=== PATIENT | female | born 1945 | race African-American/Black ===

== ENCOUNTER → 2017-03-19 | Outpatient (CLI) | payer MEDICARE ==
[2015-11-23 14:30] VITALS: BP 155/68
[~2017-03-19] MED LIST: ACET500T68 PO; ACET80TA52 PO; CALC600T PO; CHOL400C2 PO; LOPE1TAB4 PO; LORA10TA3 PO; LORA10TA55 PO; OMEP20CA9 PO; VALA500T PO; VERA120C2 PO; VERA120T59 PO
--- NOTE | 2017-03-20 08:25 | RAD ---
DATE: 03/19/2017 EXAM: DIGITAL SCREEN BILAT W/CAD HISTORY: Screening COMPARISON: 04/16/2014 This study was interpreted with the benefit of Computerized Aided Detection (CAD). FINDINGS: Breast Density: HETERO The breast parenchyma Is heterogeneiously dense, which could reduce sensitivity of mammography. Breast parenchyma level C. There are benign-appearing calcifications in both breasts. The left breast is unchanged. There is a density in the right breast on the cc view laterally. This almost certainly reflects summation artifact but a coned compression image and rolled CC views are suggested for confirmation IMPRESSION: Density right breast likely reflecting summation artifact. Additional imaging suggested as outlined above . BI-RADS CATEGORY: 0 INCOMPLETE: NEED ADDITIONAL IMAGING EVAULATION AND/OR PRIOR MAMMOGRAMS FOR COMPARISON RECOMMENDED FOLLOW-UP: ADD ADDITIONAL IMAGING PQRS compliance statement: Patient information was entered into a reminder system with a target due date soon for the next mammogram. Mammography is a sensitive method for finding small breast cancers, but it does not detect them all and is not a substitute for careful clinical examination. A negative mammogram does not negate a clinically suspicious finding and should not result in delay in biopsying a clinically suspicious abnormality. "Our facility is accredited by the [employer] Mammography Program."
== END | disposition home or self-care (01) ==
LOC: MAMMO 14:49
PROVIDERS: ATTEND Physician Assistant Surgical
DX: Z12.31 Encounter for screening mammogram for malignant neoplasm of breast (principal)
CPT/HCPCS: G0202; 77067

== ENCOUNTER → 2017-03-26 | Outpatient (CLI) | payer MEDICARE ==
[2015-11-23 14:30] VITALS: BP 155/68
--- NOTE | 2017-03-26 12:59 | RAD ---
DATE: 03/26/2017. EXAM: DIGITAL DIAGNOSTIC RT. HISTORY: Density on mammographic screening. Additional views requested. COMPARISON: 03/19/2017, 04/16/2014. This study was interpreted with the benefit of Computerized Aided Detection (CAD). FINDINGS: The breast parenchyma is heterogeneously dense, which could reduce sensitivity of mammography. Breast parenchyma level C.. The density of concern resolves to a parenchymal density on spot compression. There is no persistent suspicious mass. Coarse calcifications appear benign. 2 of the rolled images are mislabeled as left. BI-RADS CATEGORY: 2 BENIGN FINDING(S). RECOMMENDED FOLLOW-UP: 12M 12 MONTH FOLLOW-UP. PQRS compliance statement: Patient information was entered into a reminder system with a target due date 03/26/2018 for the next mammogram. Mammography is a sensitive method for finding small breast cancers, but it does not detect them all and is not a substitute for careful clinical examination. A negative mammogram does not negate a clinically suspicious finding and should not result in delay in biopsying a clinically suspicious abnormality. "Our facility is accredited by the [employer] Mammography Program."
== END | disposition home or self-care (01) ==
LOC: MAMMO 12:53
PROVIDERS: ATTEND Physician Assistant Surgical
DX: R92.8 Other abnormal and inconclusive findings on diagnostic imaging of breast (principal)
CPT/HCPCS: G0206; 77065

== ENCOUNTER 2017-08-21 10:40 | Inpatient (IN) | payer MEDICARE ==
[2017-08-21] MEDS: IV NORMAL SALINE 1000ML BAG 1,000 ML IV ×2 (11:34→15:15)
[2017-08-21 11:58] LABS: ADD MAN DIFF? NO
[2017-08-21 12:11] LABS: ANION GAP 10 (6-14); BLOOD UREA NITROGEN 14 mg/dL (7-20); CALCIUM 8.9 mg/dL (8.5-10.1); CARBON DIOXIDE 30 mmol/L (21-32); CHLORIDE 105 mmol/L (98-107); CREATININE 1.2 mg/dL (0.6-1.0); GFR 53.4; GLUCOSE 97 mg/dL (70-99); POTASSIUM 3.2 mmol/L (3.5-5.1); SODIUM 145 mmol/L (136-145)
[2017-08-21 12:12] LABS: BASO % 1 % (0-3); EOS % 0 % (0-3); HEMATOCRIT 38.8 % (36.0-47.0); HEMOGLOBIN 12.6 g/dL (12.0-15.5); LYMPH # 2.4 x10^3/uL (1.0-4.8); LYMPH % 25 % (24-48); MEAN CORPUSCULAR HEMOGLOBIN 31 pg (25-35); MEAN CORPUSCULAR HGB CONC 33 g/dL (31-37); MEAN CORPUSCULAR VOLUME 95 fL (79-100); MONO # 0.5 x10^3/uL (0.0-1.1); MONO % 5 % (0-9); NEUT # 6.7 x10^3uL (1.8-7.7); NEUT % 69 % (31-73); PLATELET COUNT 237 x10^3/uL (140-400); RED BLOOD COUNT 4.08 x10^6/uL (3.50-5.40); RED CELL DISTRIBUTION WIDTH 13.3 % (11.5-14.5); WHITE BLOOD COUNT 9.7 x10^3/uL (4.0-11.0)
[2017-08-21 12:19] LABS: LACTIC ACID 2.9 mmol/L (0.4-2.0)
[2017-08-21 12:20] LABS: TROPONINI < 0.017 ng/mL (0.000-0.055)
[2017-08-21 12:24] LABS: NT-PRO BNP 335 pg/mL (0-124)
[2017-08-21 12:26] LABS: ALBUMIN 3.4 g/dL (3.4-5.0); ALK PHOS 65 U/L (46-116); ALT (SGPT) 19 U/L (14-59); AST (SGOT) 21 U/L (15-37); DIRECT BILIRUBIN 0.1 mg/dL (0.0-0.2); LIPASE 82 U/L (73-393); TOTAL BILIRUBIN 0.2 mg/dL (0.2-1.0); TOTAL PROTEIN 7.4 g/dL (6.4-8.2)
[2017-08-21] MEDS ORDERED: ONDANSETRON PF 4 MG/2 ML VIAL. IV (12:45)
[2017-08-21] MEDS: IV NORMAL SALINE 1000ML BAG 1,620 ML IV (12:55)
[2017-08-21 13:24] LABS: BILIRUBIN,URINE NEGATIVE (NEG); CLARITY,URINE CLOUDY; COLOR,URINE YELLOW; GLUCOSE,URINE NEGATIVE (NEG); NITRITE,URINE NEGATIVE (NEG); PROTEIN,URINE 30 mg/dL (NEG-TRACE); UROBILINOGEN,URINE 0.2 mg/dL (0.2 mg/dL)
[2017-08-21 13:33] LABS: RBC,URINE 0 /HPF (0-2)
[2017-08-21 13:34] LABS: BACTERIA,URINE 0 /HPF (0-FEW); HYALINE CASTS, URINE MANY /HPF; SQUAMOUS EPITHELIAL CELL,UR OCC /LPF; WBC,URINE OCC /HPF (0-4)
[2017-08-21] MEDS: POTASSIUM CHLORIDE 20 MEQ TABLET.ER. PO (14:18)
[2017-08-21] MEDS ORDERED: LOPERAMIDE 2 MG CAPSULE PO (15:45)
[2017-08-21 17:01] LABS: LACTIC ACID 1.8 mmol/L (0.4-2.0)
[2017-08-21] MEDS: ENOXAPARIN 40 MG/0.4 ML SYRINGE. SQ (17:36)
[2017-08-21] MEDS: VERAPAMIL SR 120 MG TABLET.ER. PO (20:59)
[2017-08-22 00:10] LABS: MRSA BY PCR Negative (Negative)
[2017-08-22] MEDS: IV NORMAL SALINE 1000ML BAG 1,000 ML IV ×2 (03:14→09:04)
[2017-08-22 03:47] LABS: ADD MAN DIFF? NO
[2017-08-22 03:50] LABS: BASO % 1 % (0-3); EOS % 1 % (0-3); HEMATOCRIT 33.4 % (36.0-47.0); HEMOGLOBIN 11.5 g/dL (12.0-15.5); LYMPH # 2.2 x10^3/uL (1.0-4.8); LYMPH % 42 % (24-48); MEAN CORPUSCULAR HEMOGLOBIN 32 pg (25-35); MEAN CORPUSCULAR HGB CONC 34 g/dL (31-37); MEAN CORPUSCULAR VOLUME 94 fL (79-100); MONO # 0.5 x10^3/uL (0.0-1.1); MONO % 9 % (0-9); NEUT # 2.4 x10^3uL (1.8-7.7); NEUT % 47 % (31-73); PLATELET COUNT 247 x10^3/uL (140-400); RED BLOOD COUNT 3.56 x10^6/uL (3.50-5.40); RED CELL DISTRIBUTION WIDTH 13.3 % (11.5-14.5); WHITE BLOOD COUNT 5.1 x10^3/uL (4.0-11.0)
[2017-08-22 04:00] LABS: ANION GAP 7 (6-14); BLOOD UREA NITROGEN 8 mg/dL (7-20); CALCIUM 8.3 mg/dL (8.5-10.1); CARBON DIOXIDE 27 mmol/L (21-32); CHLORIDE 107 mmol/L (98-107); CREATININE 0.7 mg/dL (0.6-1.0); GFR 99.5; GLUCOSE 80 mg/dL (70-99); POTASSIUM 3.6 mmol/L (3.5-5.1); SODIUM 141 mmol/L (136-145)
[2017-08-22] MEDS ORDERED: NON FORMULARY ITEM (Omeprazole 20 MG) PO (09:00)
[2017-08-22] MEDS: VERAPAMIL SR 120 MG TABLET.ER. PO ×2 (09:03→21:38)
[2017-08-22] MEDS: valACYclovir 500 MG TABLET. PO (09:03)
[2017-08-22] MEDS: ACETAMINOPHEN 500 MG TABLET PO (09:03)
[2017-08-22 09:35] LABS: INFLUENZA A PATIENT NEGATIVE (NEGATIVE); INFLUENZA B PATIENT NEGATIVE (NEGATIVE); OBC FLU VALID
[2017-08-22 11:35] LABS: SEDIMENTATION RATE 20 (0-25)
[2017-08-22] MEDS: ENOXAPARIN 40 MG/0.4 ML SYRINGE. SQ (16:18)
[2017-08-23 05:27] LABS: HEMATOCRIT 33.5 % (36.0-47.0); HEMOGLOBIN 11.2 g/dL (12.0-15.5); MEAN CORPUSCULAR HEMOGLOBIN 31 pg (25-35); MEAN CORPUSCULAR HGB CONC 33 g/dL (31-37); MEAN CORPUSCULAR VOLUME 94 fL (79-100); PLATELET COUNT 223 x10^3/uL (140-400); RED BLOOD COUNT 3.56 x10^6/uL (3.50-5.40); RED CELL DISTRIBUTION WIDTH 13.5 % (11.5-14.5); WHITE BLOOD COUNT 4.6 x10^3/uL (4.0-11.0)
[2017-08-23 06:07] LABS: ANION GAP 9 (6-14); BLOOD UREA NITROGEN 11 mg/dL (7-20); CALCIUM 8.4 mg/dL (8.5-10.1); CARBON DIOXIDE 26 mmol/L (21-32); CHLORIDE 107 mmol/L (98-107); CREATININE 0.8 mg/dL (0.6-1.0); GFR 85.3; GLUCOSE 81 mg/dL (70-99); POTASSIUM 3.3 mmol/L (3.5-5.1); SODIUM 142 mmol/L (136-145)
[2017-08-23] MEDS: valACYclovir 500 MG TABLET. PO (09:12)
[2017-08-23] MEDS: ACETAMINOPHEN 500 MG TABLET PO (09:12)
[2017-08-23] MEDS: VERAPAMIL SR 120 MG TABLET.ER. PO (09:12)
[2017-08-23] MEDS: POTASSIUM CHLORIDE 20 MEQ TABLET.ER. PO (10:59)
== END 2017-08-23 13:30 | disposition home or self-care (01) | DRG 641 ==
LOC: 6 SOUTH 08-22 19:48 → ER 10:40 → 1 WEST ICU 14:06
DX: E87.6 Hypokalemia (principal); E86.0 Dehydration; F03.90 Unspecified dementia, unspecified severity, without behavioral disturbance, psychotic disturbance, mood disturbance, and anxiety; K52.9 Noninfective gastroenteritis and colitis, unspecified; I10 Essential (primary) hypertension; K21.9 Gastro-esophageal reflux disease without esophagitis; Z88.3 Allergy status to other anti-infective agents; Z88.6 Allergy status to analgesic agent; Z88.5 Allergy status to narcotic agent; Z88.8 Allergy status to other drugs, medicaments and biological substances; Z90.710 Acquired absence of both cervix and uterus; Z82.49 Family history of ischemic heart disease and other diseases of the circulatory system
CPT/HCPCS: 36415; 70450; 71045; 72100; 80048; 80076; 81001; 83605; 83690; 83880; 84484; 85025; 85027; 85651; 87641; 87804; 87804-59; 93005; 96360; 96361; 97161-GP; 99285; 99285-25; J1650; J7030; P9612

== ENCOUNTER 2017-11-01 15:02 | Emergency (ER) | payer MEDICARE, MEDICAID ==
[2017-11-01 15:58] LABS: ADD MAN DIFF? NO
[2017-11-01 16:02] LABS: BASO % 1 % (0-3); EOS % 1 % (0-3); HEMATOCRIT 38.7 % (36.0-47.0); HEMOGLOBIN 13.3 g/dL (12.0-15.5); LYMPH # 1.5 x10^3/uL (1.0-4.8); LYMPH % 33 % (24-48); MEAN CORPUSCULAR HEMOGLOBIN 32 pg (25-35); MEAN CORPUSCULAR HGB CONC 34 g/dL (31-37); MEAN CORPUSCULAR VOLUME 92 fL (79-100); MONO # 0.5 x10^3/uL (0.0-1.1); MONO % 11 % (0-9); NEUT # 2.4 x10^3uL (1.8-7.7); NEUT % 54 % (31-73); PLATELET COUNT 276 x10^3/uL (140-400); RED BLOOD COUNT 4.23 x10^6/uL (3.50-5.40); WHITE BLOOD COUNT 4.4 x10^3/uL (4.0-11.0)
[2017-11-01 16:10] LABS: INR 1.1 (0.8-1.1); PROTHROMBIN TIME PATIENT 13.3 SEC (11.7-14.0)
[2017-11-01 16:13] LABS: ANION GAP 7 (6-14); BLOOD UREA NITROGEN 11 mg/dL (7-20); BUN/CREATININE RATIO 14 (6-20); CALCIUM 9.4 mg/dL (8.5-10.1); CARBON DIOXIDE 29 mmol/L (21-32); CHLORIDE 105 mmol/L (98-107); CREATININE 0.8 mg/dL (0.6-1.0); D-DIMER 0.57 ug/mlFEU (0.00-0.50); GFR 85.3; GLUCOSE 89 mg/dL (70-99); POTASSIUM 3.2 mmol/L (3.5-5.1); SODIUM 141 mmol/L (136-145)
[2017-11-01 16:19] LABS: ALBUMIN 3.4 g/dL (3.4-5.0); ALBUMIN/GLOBULIN RATIO 0.9 (1.0-1.7); ALK PHOS 78 U/L (46-116); ALT (SGPT) 24 U/L (14-59); AST (SGOT) 26 U/L (15-37); TOTAL BILIRUBIN 0.2 mg/dL (0.2-1.0); TOTAL PROTEIN 7.4 g/dL (6.4-8.2)
[2017-11-01 16:30] LABS: CKMB MASS < 0.5 ng/mL (0.0-3.6); CREATINE KINASE 70 U/L (26-192)
[2017-11-01 16:30] LABS: NT-PRO BNP 147 pg/mL (0-124)
[2017-11-01 16:49] LABS: TROPONINI < 0.017 ng/mL (0.000-0.055)
[2017-11-01] MEDS: IOHEXOL 300 MG/ML 100ML VIAL. IV (17:15)
[2017-11-01 17:23] LABS: BILIRUBIN,URINE NEGATIVE (NEG); CLARITY,URINE CLEAR; COLOR,URINE YELLOW; GLUCOSE,URINE NEGATIVE (NEG); NITRITE,URINE NEGATIVE (NEG); PROTEIN,URINE NEGATIVE (NEG-TRACE); UROBILINOGEN,URINE 0.2 mg/dL (0.2 mg/dL)
[2017-11-01 17:29] LABS: BARBITURATES NEG (NEG); BENZODIAZEPINES NEG (NEG); CANNABINOIDS NEG (NEG); COCAINE NEG (NEG); METHADONE NEG (NEG); OPIATES NEG (NEG); PHENCYCLIDINE NEG (NEG)
[2017-11-01 17:30] LABS: AMPHETAMINE/METHAMPHETAMINE NEG (NEG); ETHANOL, URINE NEG (NEG)
[2017-11-01] MEDS ORDERED: CONTRAST GIVEN MC (17:30)
[2017-11-01 17:36] LABS: BACTERIA,URINE FEW /HPF (0-FEW); RBC,URINE 0 /HPF (0-2); SQUAMOUS EPITHELIAL CELL,UR OCC /LPF; WBC,URINE OCC /HPF (0-4)
== END 2017-11-01 19:46 | disposition home or self-care (01) ==
LOC: ER 15:02
DX: R00.2 Palpitations (principal); E05.91 Thyrotoxicosis, unspecified with thyrotoxic crisis or storm; I10 Essential (primary) hypertension; Z88.8 Allergy status to other drugs, medicaments and biological substances; Z88.5 Allergy status to narcotic agent; Z88.6 Allergy status to analgesic agent
CPT/HCPCS: 36415; 71045; 71275; 80053; 80307; 81001; 82553; 83735; 83880; 84443; 84484; 85025; 85379; 85610; 93005; 99285; 99285-25; Q9967

== ENCOUNTER 2017-11-03 15:55 | Inpatient (IN) | payer MEDICARE ==
[2017-11-03] MEDS: ADENOSINE 6 MG/2 ML VIAL. IV (16:15)
[2017-11-03] MEDS: IV NORMAL SALINE 1000ML BAG 1,000 ML IV ×2 (16:15→16:30)
[2017-11-03 16:18] LABS: ADD MAN DIFF? NO
[2017-11-03 16:20] LABS: BASO % 0 % (0-3); EOS % 1 % (0-3); HEMATOCRIT 39.1 % (36.0-47.0); HEMOGLOBIN 13.3 g/dL (12.0-15.5); LYMPH # 1.5 x10^3/uL (1.0-4.8); LYMPH % 30 % (24-48); MEAN CORPUSCULAR HEMOGLOBIN 31 pg (25-35); MEAN CORPUSCULAR HGB CONC 34 g/dL (31-37); MEAN CORPUSCULAR VOLUME 91 fL (79-100); MONO # 0.5 x10^3/uL (0.0-1.1); MONO % 10 % (0-9); NEUT # 2.9 x10^3uL (1.8-7.7); NEUT % 59 % (31-73); PLATELET COUNT 301 x10^3/uL (140-400); RED BLOOD COUNT 4.29 x10^6/uL (3.50-5.40); RED CELL DISTRIBUTION WIDTH 12.1 % (11.5-14.5); WHITE BLOOD COUNT 4.9 x10^3/uL (4.0-11.0)
[2017-11-03 16:29] LABS: INR 1.1 (0.8-1.1); PROTHROMBIN TIME PATIENT 13.2 SEC (11.7-14.0)
[2017-11-03] MEDS ORDERED: NITROGLYCERIN SUBLINGUAL 0.4 MG BOTTLE OF 25. SL (16:30)
[2017-11-03] MEDS: dilTIAZem IV PUSH 25 MG/5 ML VIAL IVP (16:33)
[2017-11-03 16:35] LABS: ANION GAP 10 (6-14); BLOOD UREA NITROGEN 10 mg/dL (7-20); BUN/CREATININE RATIO 13 (6-20); CARBON DIOXIDE 29 mmol/L (21-32); CHLORIDE 104 mmol/L (98-107); CREATININE 0.8 mg/dL (0.6-1.0); GFR 85.3; GLUCOSE 151 mg/dL (70-99); SODIUM 143 mmol/L (136-145)
[2017-11-03 16:41] LABS: ALBUMIN 3.5 g/dL (3.4-5.0); ALBUMIN/GLOBULIN RATIO 0.9 (1.0-1.7); ALK PHOS 71 U/L (46-116); ALT (SGPT) 31 U/L (14-59); AST (SGOT) 26 U/L (15-37); LIPASE 89 U/L (73-393); MAGNESIUM 2.1 mg/dL (1.8-2.4); TOTAL BILIRUBIN 0.2 mg/dL (0.2-1.0); TOTAL PROTEIN 7.6 g/dL (6.4-8.2)
[2017-11-03 16:44] LABS: TROPONINI < 0.017 ng/mL (0.000-0.055)
[2017-11-03 16:48] LABS: NT-PRO BNP 389 pg/mL (0-124); THYROID STIM HORMONE (TSH) < 0.007 uIU/mL (0.358-3.74)
[2017-11-03 16:48] LABS: CKMB MASS 1.9 ng/mL (0.0-3.6); CREATINE KINASE 188 U/L (26-192)
[2017-11-03] MEDS ORDERED: METOPROLOL TARTRATE 5 MG/5 ML VIAL. IVP (17:00)
[2017-11-03 17:03] LABS: BILIRUBIN,URINE NEGATIVE (NEG); CLARITY,URINE CLEAR; GLUCOSE,URINE NEGATIVE (NEG); NITRITE,URINE NEGATIVE (NEG); PH,URINE 7.5; PROTEIN,URINE NEGATIVE (NEG-TRACE); UROBILINOGEN,URINE 0.2 mg/dL (0.2 mg/dL)
[2017-11-03 17:07] LABS: COLOR,URINE STRAW
[2017-11-03 17:09] LABS: BARBITURATES NEG (NEG); BENZODIAZEPINES NEG (NEG); CANNABINOIDS NEG (NEG); COCAINE NEG (NEG); METHADONE NEG (NEG); OPIATES NEG (NEG); PHENCYCLIDINE NEG (NEG)
[2017-11-03 17:10] LABS: RBC,URINE 0 /HPF (0-2)
[2017-11-03 17:11] LABS: BACTERIA,URINE FEW /HPF (0-FEW); SQUAMOUS EPITHELIAL CELL,UR FEW /LPF; WBC,URINE 0 /HPF (0-4)
[2017-11-03 17:15] LABS: AMPHETAMINE/METHAMPHETAMINE NEG (NEG); ETHANOL, URINE NEG (NEG)
[2017-11-03] MEDS: POTASSIUM CHLORIDE 20 MEQ TABLET.ER. PO ×2 (17:50→23:49)
[2017-11-03 19:19] LABS: FREE T4 1.54 ng/dL (0.76-1.46)
[2017-11-03] MEDS: ENOXAPARIN 40 MG/0.4 ML SYRINGE. SQ (20:52)
[2017-11-04 04:01] LABS: ADD MAN DIFF? NO
[2017-11-04 04:07] LABS: BASO % 1 % (0-3); EOS # 0.1 x10^3/uL (0.0-0.7); EOS % 2 % (0-3); HEMOGLOBIN 12.3 g/dL (12.0-15.5); LYMPH # 1.9 x10^3/uL (1.0-4.8); LYMPH % 53 % (24-48); MEAN CORPUSCULAR HEMOGLOBIN 32 pg (25-35); MEAN CORPUSCULAR HGB CONC 34 g/dL (31-37); MEAN CORPUSCULAR VOLUME 92 fL (79-100); MONO # 0.4 x10^3/uL (0.0-1.1); MONO % 12 % (0-9); NEUT # 1.2 x10^3uL (1.8-7.7); NEUT % 33 % (31-73); PLATELET COUNT 257 x10^3/uL (140-400); RED BLOOD COUNT 3.91 x10^6/uL (3.50-5.40); RED CELL DISTRIBUTION WIDTH 12.1 % (11.5-14.5); WHITE BLOOD COUNT 3.6 x10^3/uL (4.0-11.0)
[2017-11-04] MEDS: ACETAMINOPHEN 325 MG TABLET. PO (04:16)
[2017-11-04 04:19] LABS: ANION GAP 7 (6-14); BLOOD UREA NITROGEN 7 mg/dL (7-20); CALCIUM 8.8 mg/dL (8.5-10.1); CARBON DIOXIDE 27 mmol/L (21-32); CHLORIDE 111 mmol/L (98-107); CREATININE 0.6 mg/dL (0.6-1.0); GFR 118.9; GLUCOSE 93 mg/dL (70-99); POTASSIUM 3.9 mmol/L (3.5-5.1); SODIUM 145 mmol/L (136-145)
[2017-11-04 04:20] LABS: MAGNESIUM 1.7 mg/dL (1.8-2.4)
[2017-11-04] MEDS: MAGNESIUM SULFATE 2GM 50 ML IV (11:35)
[2017-11-04] MEDS: CALCIUM CARBONATE 500 MG TABLET PO (13:42)
[2017-11-04] MEDS: CETIRIZINE HCL 10 MG TABLET. PO (21:17)
[2017-11-04] MEDS: ACETAMINOPHEN 500 MG TABLET PO (21:18)
[2017-11-04] MEDS: ENOXAPARIN 40 MG/0.4 ML SYRINGE. SQ (21:18)
[2017-11-04] MEDS: METOPROLOL TART IMMED RELEASE 25 MG TABLET. PO (21:20)
[2017-11-05] MEDS: METOPROLOL TART IMMED RELEASE 25 MG TABLET. PO ×2 (08:54→21:19)
[2017-11-05] MEDS: CETIRIZINE HCL 10 MG TABLET. PO ×2 (08:54→21:17)
[2017-11-05] MEDS: CALCIUM CARBONATE 500 MG TABLET PO (08:54)
[2017-11-05] MEDS: ACETAMINOPHEN 500 MG TABLET PO ×2 (08:58→21:17)
[2017-11-05 09:02] LABS: ANION GAP 7 (6-14); BLOOD UREA NITROGEN 10 mg/dL (7-20); CALCIUM 8.3 mg/dL (8.5-10.1); CARBON DIOXIDE 28 mmol/L (21-32); CHLORIDE 109 mmol/L (98-107); CREATININE 0.7 mg/dL (0.6-1.0); GFR 99.5; GLUCOSE 87 mg/dL (70-99); MAGNESIUM 2.1 mg/dL (1.8-2.4); POTASSIUM 3.9 mmol/L (3.5-5.1); SODIUM 144 mmol/L (136-145)
[2017-11-05] MEDS: LOPERAMIDE 2 MG CAPSULE PO (10:10)
[2017-11-05] MEDS ORDERED: DOCUSATE SODIUM 100 MG CAPSULE. PO (15:45)
[2017-11-05] MEDS ORDERED: ONDANSETRON PF 4 MG/2 ML VIAL. IV (15:45)
[2017-11-05] MEDS: ENOXAPARIN 40 MG/0.4 ML SYRINGE. SQ (21:17)
[2017-11-06 04:23] LABS: BASO % 0 % (0-3); EOS # 0.1 x10^3/uL (0.0-0.7); EOS % 2 % (0-3); HEMATOCRIT 35.4 % (36.0-47.0); HEMOGLOBIN 12.1 g/dL (12.0-15.5); LYMPH # 2.5 x10^3/uL (1.0-4.8); LYMPH % 60 % (24-48); MEAN CORPUSCULAR HEMOGLOBIN 31 pg (25-35); MEAN CORPUSCULAR HGB CONC 34 g/dL (31-37); MEAN CORPUSCULAR VOLUME 92 fL (79-100); MONO # 0.3 x10^3/uL (0.0-1.1); MONO % 7 % (0-9); NEUT # 1.2 x10^3uL (1.8-7.7); NEUT % 30 % (31-73); PLATELET COUNT 257 x10^3/uL (140-400); RED BLOOD COUNT 3.85 x10^6/uL (3.50-5.40); RED CELL DISTRIBUTION WIDTH 12.1 % (11.5-14.5); WHITE BLOOD COUNT 4.1 x10^3/uL (4.0-11.0)
[2017-11-06 04:39] LABS: ANION GAP 8 (6-14); BLOOD UREA NITROGEN 13 mg/dL (7-20); CALCIUM 8.7 mg/dL (8.5-10.1); CARBON DIOXIDE 28 mmol/L (21-32); CHLORIDE 110 mmol/L (98-107); CREATININE 0.7 mg/dL (0.6-1.0); GFR 99.5; GLUCOSE 80 mg/dL (70-99); POTASSIUM 3.8 mmol/L (3.5-5.1); SODIUM 146 mmol/L (136-145)
[2017-11-06 04:56] LABS: ADD MAN DIFF? YES
[2017-11-06 06:49] LABS: % ATYL 1 % (0-0); % EOS 3 % (0-5); % LYMPHS 66 % (24-48); % MONOS 4 % (0-10); % SEGS 26 % (35-66); PLT ESTIMATE ADEQUATE (ADEQUATE)
[2017-11-06] MEDS: CETIRIZINE HCL 10 MG TABLET. PO (09:33)
[2017-11-06] MEDS: ACETAMINOPHEN 500 MG TABLET PO (09:33)
[2017-11-06] MEDS: CALCIUM CARBONATE 500 MG TABLET PO (09:33)
[2017-11-06] MEDS: METOPROLOL TART IMMED RELEASE 25 MG TABLET. PO (09:35)
[2017-11-06] MEDS: methIMAzole 10 MG TABLET PO (14:47)
[2017-11-06] MEDS: ACETAMINOPHEN 325 MG TABLET. PO (14:47)
[2017-11-06] MEDS: MECLIZINE HCL 12.5 MG TABLET. PO (14:47)
== END 2017-11-06 16:45 | disposition home or self-care (01) | DRG 644 ==
LOC: ER 15:55 → 2 NORTH 16:24
DX: E05.90 Thyrotoxicosis, unspecified without thyrotoxic crisis or storm (principal); I47.1 Supraventricular tachycardia; F03.90 Unspecified dementia, unspecified severity, without behavioral disturbance, psychotic disturbance, mood disturbance, and anxiety; I48.91 Unspecified atrial fibrillation; F32.9 Major depressive disorder, single episode, unspecified; E03.9 Hypothyroidism, unspecified; E86.9 Volume depletion, unspecified; I10 Essential (primary) hypertension; J30.2 Other seasonal allergic rhinitis; K21.9 Gastro-esophageal reflux disease without esophagitis; Z82.49 Family history of ischemic heart disease and other diseases of the circulatory system; Z90.710 Acquired absence of both cervix and uterus; Z88.6 Allergy status to analgesic agent; Z88.1 Allergy status to other antibiotic agents; Z88.8 Allergy status to other drugs, medicaments and biological substances; Z90.49 Acquired absence of other specified parts of digestive tract
CPT/HCPCS: 36415; 71045; 71275; 80048; 80053; 80307; 81001; 82553; 83690; 83735; 83880; 84439; 84443; 84481; 84484; 85007; 85025; 85379; 85610; 93005; 93306; 96374; 97162-GP; 97165-GO; 99285; 99285-25; J1650; J3475; J3490; J8597; Q9967

== ENCOUNTER → 2019-12-26 | Outpatient (CLI) | payer MEDICARE ==
[2018-08-10 15:10] VITALS: BP 164/70
[~2019-12-26] MED LIST changes: +ACET80TA38 PO; -ACET80TA52 PO; +ASPI-482 PO; +DONE5TAB56 PO; +FAMO20TA5 PO; +FLEC50TA PO; +LEVO75TA5 PO; +MECL12.573 PO; +MEMA5TAB42 PO; +METH-364 PO; +METO25TA4 PO; +OMEP20CA16 PO; -OMEP20CA9 PO; -VALA500T PO; +VALA500T9 PO; -VERA120T59 PO; +VERA120T7 PO
--- NOTE | 2019-12-26 16:39 | CARD ---
MR#: [id number] Date of Study: 12/26/2019 Ordering Physician: JIAN PISANO, Referring Physician: JIAN PISANO, Tech: Joyce Taveras [facility] APPROVED REPORT EXAM: Two-dimensional and M-mode echocardiogram with Doppler and color Doppler. Other Information Quality : AverageHR: 62bpm Rhythm : NSR INDICATION Abnormal ECG Hypertension/HCVD RISK FACTORS Hypertension 2D DIMENSIONS RVDd2.7 (2.9-3.5cm)Left Atrium(2D)3.3 (1.6-4.0cm) IVSd1.2 (0.7-1.1cm)Aortic Root(2D)2.8 (2.0-3.7cm) LVDd4.1 (3.9-5.9cm)LVOT Diameter1.8 (1.8-2.4cm) PWd1.0 (0.7-1.1cm)LVDs2.5 (2.5-4.0cm) FS (%) 39.9 %SV53.4 ml LVEF(%)71.0 (>50%) Aortic Valve AoV Peak Kevin.118.0cm/sAoV VTI27.6cm AO Peak GR.0.0mmHgLVOT Peak Kevin.82.6cm/s AO Mean GR.2mmHgAVA (VMAX)1.80cm2 Mitral Valve MV E Wgpbcvcx19.3cm/sMV DECEL [id number] MV A Ptyprzts29.3cm/sE/A Ratio1.0 MV A [id number] Pulmonary Valve PV Peak Bydcplxg13.6cm/s Tricuspid Valve TR P. Viozsrwy763hb/sTR Peak Gr.24mmHg Pulmonary Vein S1 Smqlgzkz76.4cm/sD2 Jwxokvle19.6cm/s PVa [id number] LEFT VENTRICLE The left ventricle is normal size. There is borderline concentric left ventricular hypertrophy. The l eft ventricular systolic function is normal and the ejection fraction is within normal range. EF 55% There is normal LV segmental wall motion. RIGHT VENTRICLE The right ventricle is normal size. There is normal right ventricular wall thickness. The right ventr icular systolic function is normal. ATRIA The left atrium size is normal. The right atrium size is normal. The interatrial septum is intact wit h no evidence for an atrial septal defect or patent foramen ovale as noted on 2-D or Doppler imaging. AORTIC VALVE The aortic valve is normal in structure and function. Doppler and Color Flow revealed no significant aortic regurgitation. There is no significant aortic valvular stenosis. MITRAL VALVE The mitral valve is normal in structure and function. There is no evidence of mitral valve prolapse. There is no mitral valve stenosis. Doppler and Color-flow revealed mild mitral regurgitation. TRICUSPID VALVE The tricuspid valve is normal in structure and function. Doppler and Color Flow revealed mild tricusp id regurgitation. Estimated PAP 30 mmHg. PULMONIC VALVE Doppler and Color Flow revealed trace to mild pulmonic valvular regurgitation. There is no pulmonic v alvular stenosis. GREAT VESSELS The aortic root is normal in size. The ascending aorta is normal in size. The pulmonary artery is nor mal. The IVC is normal in size and collapses >50% with inspiration. PERICARDIAL EFFUSION There is no evidence of significant pericardial effusion. Critical Notification Critical Value: No <Conclusion> The left ventricular systolic function is normal and the ejection fraction is within normal range. EF 55% There is normal LV segmental wall motion. Signed by : Jian Pisano, Electronically Approved : 12/26/2019 16:39:09
== END | disposition home or self-care (01) ==
LOC: ECHO 13:21
PROVIDERS: ATTEND Internal Medicine Cardiovascular Disease
DX: I08.8 Other rheumatic multiple valve diseases (principal); I47.1 Supraventricular tachycardia
CPT/HCPCS: 93306